=== PATIENT | female | born 1985 | race Asian ===

== ENCOUNTER 2019-06-09 14:37 | Emergency (ER) | payer MEDICAID ==
[~2019-06-09] VITALS: Ht 160 cm; Wt 86.2 kg
[2019-06-09 14:37] VITALS: BP 158/88
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
--- NOTE | 2019-06-09 15:08 | NUR ---
ED Nurse Note: patient taken to CT scan.
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
[2019-06-09] MEDS ORDERED: LIDODERM700 M1 TOPIC (16:08)
[2019-06-09] MEDS ORDERED: ROBAXIN-500MG ORAL (16:08)
[2019-06-09] MEDS ORDERED: IBUPROFEN600 MG ORAL (16:08)
[2019-06-09 16:18] VITALS: BP 158/88
--- NOTE | 2019-06-09 16:18 | NUR ---
ER DISCHARGE NOTE: Patient is cleared to be discharged per DIANA CASTILLO, pt is aox4, on room air, with stable vital signs. pt was given dc and prescription instructions, pt was able to verbalize understanding, pt id band removed without complications. pt is able to ambulate with steady gait. pt took all belongings.
== END 2019-06-09 16:19 | disposition home or self-care (01) ==
LOC: EDBD 14:37 → EMR 16:05
DX: S00.93XA Contusion of unspecified part of head, initial encounter (principal); S16.1XXA Strain of muscle, fascia and tendon at neck level, initial encounter; E11.9 Type 2 diabetes mellitus without complications; I10 Essential (primary) hypertension; E78.5 Hyperlipidemia, unspecified; X58.XXXA Exposure to other specified factors, initial encounter; Y92.410 Unspecified street and highway as the place of occurrence of the external cause
CPT/HCPCS: 70450; 72125; Z7502; 99284